=== PATIENT | female | born 1955 | race Native Hawaiian/Other Pacific Islander ===

== ENCOUNTER 2017-04-27 15:44 | Emergency (ER) | payer SELFPAY ==
[~2017-04-27] VITALS: Ht 167.6 cm; Wt 77.6 kg
[~2017-04-27 15:44] MED LIST: GUAISOL PO; Z.0.NO CURRENT MEDS
[2017-04-27 16:02] VITALS: BP 124/58; PULSE 68; RESP 18; TEMP 97.9; O2SAT 99
--- NOTE | 2017-04-27 18:37 | PD ---
HPI Chief Complaint: Eye Problems/Injury Time Seen by Provider: 18:37 Travel History International Travel<30 days: No Contact w/Intl Traveler<30days: No Traveled to known affect area: No History of Present Illness HPI 61-year-old female presents to the ED for evaluation of left eye pain. Onset this afternoon while the patient and her daughter were walking into [employer]. She endorses gritty sensation in the eye and increased tearing. She denies vision changes, headache, photophobia, pain with ocular movements. PFSH Past Medical History ?: Not Social History Alcohol Use: No Tobacco Use: No Substance Use: No Allergies-Medications (Allergen,Severity, Reaction): Coded Allergies: No Known Allergies (Verified , 04/27/17) Reported Meds & Prescriptions Reported Meds & Active Scripts Active Erythromycin Opth Oint 5 Mg/Gm Oint 1 Applic LEFT EYE QID 5 Days Review of Systems Except as stated in HPI: all other systems reviewed are Neg Physical Exam Narrative GENERAL: Well-nourished, well-developed female in no acute distress. SKIN: Focused skin assessment warm/dry. HEAD: Normocephalic. EYES: No scleral icterus. Left eye mildly injected with extra tearing. PERRLA. EOMI. Evaluation under magnifying glass reveals multiple small gritty foreign bodies on the conjunctiva. The eye was flushed with 100cc NS. The bilateral funduscopic exam appeared within normal limits without papilledema, A- V nicking or blood associated with the optic disc. Fluorescein exam under Wood' s lamp of the left eye reveals small corneal abrasion in the left lower outer quadrant. NECK: Supple, trachea midline. No JVD or lymphadenopathy. CARDIOVASCULAR: Regular rate and rhythm without murmurs, gallops, or rubs. RESPIRATORY: Breath sounds equal bilaterally. No accessory muscle use. GASTROINTESTINAL: Abdomen soft, non-tender, nondistended. MUSCULOSKELETAL: No cyanosis, or edema. BACK: Nontender without obvious deformity. No CVA tenderness. Data Data Last Documented VS Vital Signs Date Time Temp Pulse Resp B/P (MAP) Pulse Ox O2 Delivery O2 Flow Rate FiO2 04/27/17 16:02 97.9 68 18 124/58 (80) 99 Orders Orders Proparacaine 0.5% Opth Soln (Alcaine 0.5 (04/27/17 18:45) [facility] Medical Decision Making Medical Screen Exam Complete: Yes Emergency Medical Condition: Yes Differential Diagnosis Foreign body versus corneal abrasion versus iritis versus other Narrative Course 61-year-old female presents to the ED for evaluation of left eye pain. Onset this afternoon while the patient and her daughter were walking into [employer]. She endorses gritty sensation in the eye and increased tearing. She denies vision changes, headache, photophobia, pain with ocular movements. Vitals reviewed. Physical exam reveals an anxious female in NAD. The patient only speaks Kiswahili, she refused translation service. Translation provided by her daughter.Left eye mildly injected with extra tearing. PERRLA. EOMI. Evaluation under magnifying glass reveals multiple small gritty foreign bodies on the conjunctiva. I suspect it is sand. The bilateral funduscopic exam appeared within normal limits without papilledema, A-V nicking or blood associated with the optic disc. Fluorescein exam under Wood's lamp of the left eye reveals small corneal abrasion in the left lower outer quadrant. Single drop of proparacaine was applied to the affected eye. The eye was flushed with 100cc NS. Patient is prescribed erythromycin ointment 4 times a day 5 days. She is instructed to follow-up with the mental health orderly tomorrow. The patient' s daughter indicated understanding of the instructions and is agreeable to the care plan. She is stable and discharged home. Diagnosis Primary Impression: Foreign body of external eye, left Qualified Codes: T15.92XA - Foreign body on external eye, part unspecified, left eye, initial encounter Additional Impression: Corneal abrasion, left Qualified Codes: S05.02XA - Injury of conjunctiva and corneal abrasion without foreign body, left eye, initial encounter Referrals: [facility] Patient Instructions: Corneal Abrasion (ED), General Instructions Additional Instructions: Rest, hydrate. Apply the ointment to the eye 4 times a day as prescribed. Most importantly apply the ointment before bedtime to allow the medication to absorb. Avoid rubbing the eye. Nothing else in the eye. Follow-up with the mental health orderly. Return to the ED for worsening symptoms or any urgent or emergent medical condition. Med/Other Pt SpecificInfo: Prescription(s) given Scripts Erythromycin Opth Oint (Erythromycin Opth Oint) 5 Mg/Gm Oint 1 APPLIC LEFT EYE QID for Infection for 5 Days, #1 TUBE 0 Refills Prov: Monty Bradley MD 04/27/17 Disposition: 01 DISCHARGE HOME Condition: Stable Liana Ken Apr 27, 2017 18:37
[2017-04-27] MEDS ORDERED: PROPARACAINE HCL 0.5% OPHT SOLN 15 ML BTL LEFT EYE ONE (18:45)
[2017-04-27] MEDS ORDERED: ERYTOIN10 LEFT EYE (19:23)
== END 2017-04-27 19:35 | disposition home or self-care (01) ==
LOC: PHED 15:44 → PHEFT 19:35
DX: T15.92XA Foreign body on external eye, part unspecified, left eye, initial encounter (principal); S05.02XA Injury of conjunctiva and corneal abrasion without foreign body, left eye, initial encounter
CPT/HCPCS: 99283

== ENCOUNTER 2017-08-16 17:25 | Emergency (ER) | payer SELFPAY ==
[~2017-08-16] VITALS: Ht 160 cm; Wt 77.0 kg
[~2017-08-16 17:25] MED LIST changes: +ERYTOIN10 LEFT EYE; -GUAISOL PO; -Z.0.NO CURRENT MEDS
[2017-08-16 17:27] VITALS: BP 140/68; PULSE 78; RESP 16; TEMP 98.2; O2SAT 96
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
[2017-08-16] MEDS ORDERED: CEPH-460 PO (17:59)
[2017-08-16] MEDS ORDERED: CEPHALEXIN MONOHYDRATE 500 MG CAP PO ONE (18:00)
[2017-08-16] MEDS ORDERED: TETANUS/DIPHTHERIA TOXOID ADULT 0.5 ML VIAL IM ONE (18:00)
== END 2017-08-16 18:35 | disposition home or self-care (01) ==
LOC: PHEFT 17:25
DX: T23.201A Burn of second degree of right hand, unspecified site, initial encounter (principal); X08.8XXA Exposure to other specified smoke, fire and flames, initial encounter; Z23 Encounter for immunization
CPT/HCPCS: 90471; 90714

== ENCOUNTER 2017-08-18 16:59 | Emergency (ER) | payer SELFPAY ==
[~2017-08-18] VITALS: Ht 160 cm; Wt 77.0 kg
[~2017-08-18 16:59] MED LIST changes: +CEPH-460 PO; -ERYTOIN10 LEFT EYE
[2017-08-18 17:05] VITALS: BP 137/58; PULSE 74; RESP 16; TEMP 98.1; O2SAT 97
[2017-08-18] MEDS ORDERED: SILVER SULFADIAZINE 1% CR 400 GM JAR TOPICAL ONE (19:00)
[2017-08-18] MEDS ORDERED: ACETAMINOPHEN/CODEINE 300 MG/30 MG TAB PO ONE (19:00)
[2017-08-18] MEDS ORDERED: SILV1CRE20 TOPICAL (19:01)
[2017-08-18] MEDS ORDERED: CEPH-460 PO (19:01)
[2017-08-18] MEDS ORDERED: TYLETAB34 PO (19:01)
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
[2017-08-18 20:22] VITALS: RESP 16
[2017-08-18 20:23] VITALS: BP 135/60
== END 2017-08-18 20:26 | disposition home or self-care (01) ==
LOC: PHED 16:59
DX: T23.201D Burn of second degree of right hand, unspecified site, subsequent encounter (principal); X10.2XXD Contact with fats and cooking oils, subsequent encounter
CPT/HCPCS: 16020